=== PATIENT | female | born 1965 | race Caucasian/White ===

== ENCOUNTER 2016-07-17 21:09 | Emergency (ER) | payer OTHER ==
--- NOTE | ~2016-07-17 | CT4 ---
[facility] A Service of [facility] RADIOLOGY TEXT RESULTS PATIENT: ABIDA GAONA LOCATION: SED : 61 UNIT #: [id number] AGE: [address]: DANA MCCORD SEX: F ORDER DR: [id number] [place] [address] [id number] E MR#: [id number] Acc #: [id number] NAME: ABIDA GAONA. : 1965 SEX: F STUDY DATE/TIME: 07/17/2016 22:46 UNIT: SED ROOM: STUDY DESCRIPTION: CT Abd and Pelv Wo Cont Attending Physician: Dana Mccord Ordering Physician: Physician Non-Staff Primary Care Physician: Kendal Barron M.D. MEDICAL IMAGING REPORT This report is preliminary unless electronic signature is present. EXAM CT abdomen and pelvis without contrast INDICATION Lower back pain radiating to both hips as well as lower abdominal pain for the past [address] abdomen and pelvis. This CT exam was performed with one or more of the following radiation dose reduction techniques: automatic exposure control, adjustment of mA and/or kV according to patient size, and iterative reconstruction. COMPARISON 08/25/2014 FINDINGS ABDOMEN WITHOUT CONTRAST: Two nodules in the left lower lobe measuring up to 7.0 mm are not significantly changed. The liver, spleen, kidneys, adrenal glands, pancreas and gallbladder unremarkable. Bowel loops are nondilated. Appendix is normal. No radiodense ureteral calculus or hydronephrosis. PELVIS WITHOUT CONTRAST: No pelvic mass or fluid. No aggressive appearing bone lesion. IMPRESSION No acute findings in the abdomen or pelvis. Dictated by... [facility] A Service [facility] RADIOLOGY TEXT RESULTS PATIENT: ABIDA GAONA LOCATION: SED : 61 UNIT #: [id number] AGE: [address]: DANA MCCORD SEX: F ORDER DR: Donal Johnston M.D. THIS IS AN ELECTRONICALLY VERIFIED REPORT Donal Johsnton M.D. at 07/18/2016 9:55 PM Maria De Jesus TD: 07/18/2016 08:24 JOB #: [id number] MEDICAL IMAGING REPORT Page 1 of 1
[~2016-07-17 21:09] MED LIST: ADVAIR 100-501 EAC1 IH; ADVAIR 230-21; ADVAIR 250-501 EACH IH; ALBUTEROL17 GM INH; AMOXICILLIN250 MG PO; BACTRIM DS TABL1 TA1 PO; CARAFATE1 GM PO; CELEXA PO; CELEXA20 MG; CLARITIN10 M3 PO; DESYREL50 MG PO; FLONASE16 GM; IRON TABLETS1 TAB PO; K-DUR10 MEQ PO; LIPITOR; LIPITOR80 MG PO; MEDROL4 MG/DOSE-; MIRAPEX; MIRAPEX1 MG PO; OMEPRAZOLE40 M1 PO; PAXIL PO; PHENERGAN25 MG PO; PREDNISONE PO; PRILOSEC; SINGULAIR PO; SPIRIVA18 MCG INH; TESSALON PERLE100 M1 PO; TUDORZA PRESS400 MCG IH; VITAMIN B-121000 MCG PO; VITAMIN D1000 UNIT; ZANTAC PO; ZOVIRAX400 MG PO; ZYRTEC PO
[2016-07-17] MEDS ORDERED: LORTAB 10-3251 EACH PO (21:15)
[2016-07-17] MEDS ORDERED: DULOXETINE HCL60 MG PO (21:15)
[2016-07-17] MEDS ORDERED: FLEXERIL10 MG PO (21:16)
[2016-07-17] MEDS ORDERED: MOTRIN PO (21:16)
[2016-07-17 21:53] LABS: URINE SOURCE CLEAN CATCH
[2016-07-17 21:56] LABS: URINE APPEARANCE CLEAR; URINE BILIRUBIN NEG (NEG); URINE BLOOD NEG (NEG); URINE COLOR YELLOW; URINE GLUCOSE NEG (NORM); URINE KETONE NEG (NEG); URINE LEUKOCYTE ESTERASE NEG (NEG); URINE NITRATE NEG (NEG); URINE PROTEIN NEG (NEG); URINE UROBILINOGEN 0.2 MG/DL (NORM)
[2016-07-17 21:59] LABS: BASOPHIL# 0.1 X10e3 (0-0.3); BASOPHIL% 1.2 % (0-2.5); EOSINOPHIL# 0.3 X10e3 (0-0.7); EOSINOPHIL% 4.4 % (0.0-7.0); HEMATOCRIT 42.8 % (35.0-45.0); HEMOGLOBIN 14.8 gm/dL (12.0-16.0); LYMPHOCYTE# 1.9 X10e3 (1.0-3.5); LYMPHOCYTE% 23.8 % (17.0-45.0); MEAN CELL VOLUME 89.6 FL (83-96); MEAN CORPUSCULAR HGB CONC 34.5 g/dL (30-36); MICRO INDICATED? NO; MONOCYTE# 0.6 X10e3 (0-1.0); MONOCYTE% 7.5 % (3.0-12.0); NEUTROPHIL% 63.1 % (40-75); PLATELET COUNT 317 X10e3 (140-420); RED BLOOD COUNT 4.78 X10e (3.90-5.30); RED CELL DISTRIBUTION WIDTH 13.9 % (11.0-15.5); WHITE BLOOD COUNT 7.9 X10e3 (4.0-10.5)
[2016-07-17 22:00] LABS: DIFF IND NO
[2016-07-17 22:11] LABS: ALBUMIN SERUM 3.7 g/dL (3.5-5.0); BILIRUBIN,TOTAL 0.2 mg/dL (0.2-2.0); BUN/CREATININE RATIO 8.75; CALCIUM SERUM 8.8 mg/dL (8.4-10.2); CREATININE SERUM 0.8 mg/dL (0.6-1.4); GLOM FILT RATE Estimated 84.8 mL/min (>60); POTASSIUM 3.6 mmol/L (3.5-5.1); PROTEIN TOTAL SERUM 7.1 g/dL (6.0-8.3)
[2016-09-06] MEDS ORDERED: VITAMIN D3 PO (11:17)
[2016-09-06] MEDS ORDERED: DULERA 100 MCG/13 GM INH (11:20)
== END 2016-07-17 23:42 | disposition home or self-care (01) ==
LOC: SED 21:09
PROVIDERS: Nurse Practitioner
DX: M54.41 Lumbago with sciatica, right side (principal); M54.42 Lumbago with sciatica, left side; K21.9 Gastro-esophageal reflux disease without esophagitis; J45.909 Unspecified asthma, uncomplicated; F17.210 Nicotine dependence, cigarettes, uncomplicated; Z79.899 Other long term (current) drug therapy
CPT/HCPCS: 36415; 74176; 80053; 81003; 85025; 96361; 96374; 99284; J1885

== ENCOUNTER → 2016-08-15 | Outpatient (CLI) | payer OTHER ==
[~2016-08-15] MED LIST changes: +DULERA 100 MCG/13 GM INH; +DULOXETINE HCL60 MG PO; +FLEXERIL10 MG PO; +LORTAB 10-3251 EACH PO; +MOTRIN PO; +VITAMIN D3 PO
--- NOTE | ~2016-08-15 | CR126 ---
[facility]. [facility] A Service of [facility] RADIOLOGY TEXT RESULTS PATIENT: ABIDA GAONA [facility]ATION: [facility] : 61 UNIT #: [id number] AGE: [address]: Millie Jansen [employer] SEX: F ORDER DR: [id number] [place] [id number] O MR#: [id number] Acc #: [id number] NAME: ABIDA GAONA : 1965 SEX: F STUDY DATE/TIME: 08/15/2016 12:18 UNIT: [facility] ROOM: STUDY DESCRIPTION: CR Foot Complete Min 3 View Lt Attending Physician: Millie Jansen A.P.R.N. Referring Physician: Millie Jansen A.P.R.N. Ordering Physician: Millie Jansen A.P.R.N. Primary Care Physician: Kendal Barron M.D. MEDICAL IMAGING REPORT This report is preliminary unless electronic signature is present. EXAM Left foot 3 views INDICATIONS Numb and swollen toes for [id number] months in the left foot. COMPARISON No comparisons. FINDINGS The alignment is normal. There is no evidence for fracture. The soft tissue structures are unremarkable. IMPRESSION Negative. Dictated by... Alvaro Villalta M.D. THIS IS AN ELECTRONICALLY VERIFIED REPORT Alvaro Villalta M.D. at 08/17/2016 7:24 PM ARS/to TD: 08/16/2016 11:28 JOB #: [id number] MEDICAL IMAGING REPORT Page 1 of 1
== END | disposition home or self-care (01) ==
LOC: SRAD 12:12
DX: R20.0 Anesthesia of skin (principal)
CPT/HCPCS: 73630

== ENCOUNTER → 2016-09-06 | Day surgery (SDC) | payer OTHER ==
--- NOTE | ~2016-09-06 | OR ---
Unit #: [id number] #: [id number] Patient: ABIDA GAONA [id number] [address] [address] [id number] O MR#: [id number] NAME: ABIDA GAONA ROOM: Date of Procedure: 09/06/2016 Admission Date: 09/06/2016 Surgeon: Elpidio De Dios M.D. : 1965 Attending Physician: Elpidio De Dios M.D. Primary Care Physician: Kendal Barron M.D. OPERATIVE REPORT PROCEDURE PERFORMED Colonoscopy with snare polypectomy. INDICATIONS FOR PROCEDURE The patient with average risk for rectal cancer, previous colonoscopy 3 years ago was very suboptimal secondary to poor prep. MEDICATIONS Monitored anesthesia. POSTOPERATIVE FINDINGS 1. A 5-mm transverse colon, snared, and sent to histopathology. 2. Polyp in sigmoid colon 5 mm each snared and sent for histopathology. 3. Prep was adequate. 4. Internal hemorrhoids. PLAN Follow up on pathology report Repeat colonoscopy in 5 years. DESCRIPTION OF PROCEDURE The patient was explained of the procedure, risks, and benefits along with risks and benefits of anesthesia. She was brought to the endoscopy room. Propofol anesthesia was given. Rectal exam was done, which was normal. Colonoscope was lubricated, passed up the rectum, advanced under direct vision all the way to cecum. Cecum was identified by ileocecal valve and appendiceal orifice. I then started to pull the scope out carefully looking. Polyps were seen as described above. Prep was good. I retroflexed in the rectum. Small hemorrhoids noted. Gently, the scope was pulled out. She tolerated it well. Dictated by... Lazarus Rachel/anikal TD: 09/08/2016 05:40 JOB #: [id number] Unit #: [id number] #: [id number] Patient: ABIDA GAONA OPERATIVE REPORT Page 1 of 1 X Elpidio De Dios MD PROCEDURE OPERATIVE NOTE
== END | disposition home or self-care (01) ==
LOC: COPS 10:51
DX: Z12.11 Encounter for screening for malignant neoplasm of colon (principal); D12.3 Benign neoplasm of transverse colon; D12.5 Benign neoplasm of sigmoid colon; K64.8 Other hemorrhoids; J44.9 Chronic obstructive pulmonary disease, unspecified; K21.9 Gastro-esophageal reflux disease without esophagitis; F32.9 Major depressive disorder, single episode, unspecified; F41.9 Anxiety disorder, unspecified; F17.210 Nicotine dependence, cigarettes, uncomplicated; Z87.01 Personal history of pneumonia (recurrent); Z79.899 Other long term (current) drug therapy; Z98.51 Tubal ligation status
CPT/HCPCS: 84703; 88305